=== PATIENT | female | born 1970 | race American Indian/Alaskan Native ===

== ENCOUNTER 2019-03-13 17:36 | Emergency (ER) | payer SELFPAY ==
[2019-03-13 18:44] VITALS: BP 138/82
--- NOTE | 2019-03-13 18:45 | Event Note ---
ED Screening Note Date of service: 03/13/19 Time: 18:43 ED Screening Note: This is a 48 y.o. F. that presents to the ER with right sided facial pain and swelling for 2 days. Denies dental pain. This initial assessment/diagnostic orders/clinical plan/treatment(s) is/are subject to change based on patients health status, clinical progression and re- assessment by fellow clinical providers in the ED. Further treatment and workup at subsequent clinical providers discretion. Patient/guardian urged not to elope from the ED as their condition may be serious if not clinically assessed and managed. Initial orders include:
[2019-03-13] MEDS ORDERED: PERCOCET 5/325 PO ONE (19:28)
[2019-03-13] MEDS ORDERED: TORADOL IV ONE (19:28)
[2019-03-13] MEDS ORDERED: CLEOCIN 900 MG/50 mL 900 MG/50 ML BAG IV ONE (19:28)
[2019-03-13] MEDS ORDERED: DECADRON IV ONE (19:28)
[2019-03-13] MEDS ORDERED: ZOFRAN IV ONE (19:28)
[2019-03-13 20:25] LABS: Alanine Aminotransferase 32 units/L (7-56); Albumin 4.2 g/dL (3.9-5); BUN/Creatinine Ratio 10; Blood Urea Nitrogen 8 mg/dL (7-17); Calcium 9.3 mg/dL (8.4-10.2); Hemolysis Index 9
[2019-03-13 21:25] LABS: Hematocrit 39.4 % (30.3-42.9); Hemoglobin 12.9 gm/dl (10.1-14.3); Mean Corpuscular HGB Conc 33 % (30-34); Mean Corpuscular Volume 85 fl (79-97); Platelet Count 310 K/mm3 (140-440); Red Blood Count 4.65 M/mm3 (3.65-5.03); Red Cell Distribution Width 13.5 % (13.2-15.2)
[2019-03-13 22:10] LABS: Basophils % (Auto) 0.2 % (0.0-1.8); Eosinophils # (Auto) 0.1 K/mm3 (0.0-0.4); Lymphocytes # (Auto) 1.9 K/mm3 (1.2-5.4); Monocytes # (Auto) 0.8 K/mm3 (0.0-0.8); Monocytes % (Auto) 6.4 % (0.0-7.3)
--- NOTE | 2019-03-13 22:43 | Cat Scan Report ---
CT maxillofacial without contrast INDICATION : left side facial swelling facial . TECHNIQUE: Axial imaging performed through the face with reconstructed images also reviewed. All CT scans at this location are performed using CT dose reduction for ALARA by means of automated exposur e control. COMPARISON: None FINDINGS: There is cortical breakthrough and bony erosion involving the right first maxillary molar, with complete opacification of the right maxillary sinus and also a more superficial abscess measuri ng 2.8 x 1.9 cm on image #133 of series #3 overlying the right-sided maxilla. There is surrounding in flammatory stranding in the subcutaneous tissues in shotty likely reactive lymph nodes. Orbits are normal. There is mucosal thickening in several of the right sided ethmoid air cells as wel l as the aforementioned right maxillary sinus which is nearly completely opacified. There is essentia lly no aeration of the frontal sinuses. Remaining sinuses and mastoid air cells are clear. IMPRESSION: 1. Right-sided maxillary periapical abscess as outlined above. 2. Right maxillary sinus and ethmoid air cell paranasal sinus disease. Signer Name: Maury Nunez MD Signed: 03/13/2019 10:38 PM Workstation Name: [id number]
[2019-03-13 23:01] LABS: Basophils % (Manual) 0 % (0.0-1.8); Total Cells Counted 100
[2019-03-13 23:02] LABS: Platelet Estimate Consistent w Auto; RBC Morphology Normal
--- NOTE | 2019-03-13 23:08 | Emergency Department Report ---
ED ENT HPI - General Chief complaint: Dental/Oral Stated complaint: SWOLLEN FACE Time Seen by Provider: 03/13/19 18:43 Source: patient Mode of arrival: Ambulatory Limitations: No Limitations - History of Present Illness Initial comments: Patient is a 48-year-old -[place] female with no past medical history who presents to the ED with complaint of acute onset persistent painful swelling right maxillary gums with premolar and molar toothache for the last 1 week. Patient states that in the last 2 days she has had worsening right zygomatic swelling with severe pain. Patient states that she has been taking ibuprofen for pain as needed. Patient states that the last 2 days the patient has not been well controlled with ibuprofen. Patient denies fever, chills, nausea, vomiting, dizziness, headache, chest pain, shortness of breath, sore throat, change in vision, traumatic injury or discharge and hearing loss MD complaint: tooth pain (right maxillary premolars and molar), other (swollen gums and face) -: Sudden, week(s) (1) Location: tooth # (1- 5), other (right maxillary premolar and molar teeth, swollen face) Severity: severe Severity scale (0 -10): 8 Quality: aching, sharp, constant Consistency: constant Improves with: none Worsens with: none Context- Dental: history of dental caries, poor dental care Associated Symptoms: gum swelling, toothache. denies: fever, cough, pain with swallowing, sore throat, tinnitus, hearing loss, discharge from ear, rhinorrhea, other - Related Data Previous Rx's Medication Instructions Recorded Last Taken Type Acetaminophen/Codeine [Tylenol 1 tab PO Q6H PRN #15 tab 03/13/19 Unknown Rx /Codeine # 3 tab] Clindamycin [Clindamycin CAP] 150 mg PO Q6HR #80 capsule 03/13/19 Unknown Rx Ketorolac [Toradol] 10 mg PO Q6H PRN #20 tablet 03/13/19 Unknown Rx Penicillin V Potassium 500 mg PO Q6H #40 tablet 03/13/19 Unknown Rx Allergies Allergy/AdvReac Type Severity Reaction Status Date / Time No Known Allergies Allergy Verified 03/13/19 18:13 ED Dental HPI - General Chief complaint: Dental/Oral Stated complaint: SWOLLEN FACE Time Seen by Provider: 03/13/19 18:43 Source: patient Mode of arrival: Ambulatory Limitations: No Limitations - History of Present Illness Initial comments: Patient is a 48-year-old -[place] female with no past medical history who presents to the ED with complaint of acute onset persistent painful swelling right maxillary gums with premolar and molar toothache for the last 1 week. Patient states that in the last 2 days she has had worsening right zygomatic swelling with severe pain. Patient states that she has been taking ibuprofen for pain as needed. Patient states that the last 2 days the patient has not been well controlled with ibuprofen. Patient denies fever, chills, nausea, vomiting, dizziness, headache, chest pain, shortness of breath, sore throat, change in vision, traumatic injury or discharge and hearing loss MD complaint: tooth pain (right maxillary premolar and molar toothache, swollen gums) -: Sudden, week(s) (1) 1 - Swollen, painful teeth and gum Severity: severe Quality: aching, sharp, constant Consistency: constant Improves with: none Worsens with: none Context- Dental: history of dental caries, poor dental care Dental Associated Symptons: Yes: Gum Swelling. No: Headache, Earache, Sore Throat - Related Data Previous Rx's Medication Instructions Recorded Last Taken Type Acetaminophen/Codeine [Tylenol 1 tab PO Q6H PRN #15 tab 03/13/19 Unknown Rx /Codeine # 3 tab] Clindamycin [Clindamycin CAP] 150 mg PO Q6HR #80 capsule 03/13/19 Unknown Rx Ketorolac [Toradol] 10 mg PO Q6H PRN #20 tablet 03/13/19 Unknown Rx Penicillin V Potassium 500 mg PO Q6H #40 tablet 03/13/19 Unknown Rx Allergies Allergy/AdvReac Type Severity Reaction Status Date / Time No Known Allergies Allergy Verified 03/13/19 18:13 ED Review of Systems ROS: Stated complaint: SWOLLEN FACE Other details as noted in HPI Constitutional: denies: chills, fever Eyes: denies: eye pain, eye discharge, vision change ENT: dental pain (right maxillary premolar and molar teeth), other (swollen right maxillary gums; swollen right zygomatic area). denies: ear pain, throat pain Respiratory: denies: cough, shortness of breath, wheezing Cardiovascular: denies: chest pain, palpitations Endocrine: no symptoms reported Gastrointestinal: denies: abdominal pain, nausea, diarrhea Genitourinary: denies: urgency, dysuria, discharge Musculoskeletal: denies: back pain, joint swelling, arthralgia Skin: denies: rash, lesions Neurological: denies: headache, weakness, paresthesias Psychiatric: denies: anxiety, depression Hematological/Lymphatic: denies: easy bleeding, easy bruising ED Past Medical Hx - Social History Smoking Status: Never Smoker Substance Use Type: None - Medications Home Medications: Home Medications Medication Instructions Recorded Confirmed Last Taken Type Acetaminophen/Codeine [Tylenol 1 tab PO Q6H PRN #15 tab 03/13/19 Unknown Rx /Codeine # 3 tab] Clindamycin [Clindamycin CAP] 150 mg PO Q6HR #80 capsule 03/13/19 Unknown Rx Ketorolac [Toradol] 10 mg PO Q6H PRN #20 tablet 03/13/19 Unknown Rx Penicillin V Potassium 500 mg PO Q6H #40 tablet 03/13/19 Unknown Rx ED Physical Exam - General Limitations: No Limitations General appearance: alert, in no apparent distress - Head Head exam: Present: atraumatic, normocephalic, normal inspection - Eye Eye exam: Present: normal appearance, PERRL, EOMI. Absent: scleral icterus, conjunctival injection, nystagmus, periorbital swelling Pupils: Present: normal accommodation - ENT ENT exam: Present: mucous membranes moist, TM's normal bilaterally, normal external ear exam, other (Swollen right zygomatic area; swollen right maxillary gums and severely tender premolars and molar teeth) - Neck Neck exam: Present: normal inspection, full ROM, lymphadenopathy. Absent: tenderness, meningismus, thyromegaly - Respiratory Respiratory exam: Present: normal lung sounds bilaterally. Absent: respiratory distress, wheezes, rales, rhonchi, stridor, chest wall tenderness, accessory muscle use, decreased breath sounds - Cardiovascular Cardiovascular Exam: Present: regular rate, normal rhythm. Absent: systolic murmur, diastolic murmur, rubs, gallop - GI/Abdominal GI/Abdominal exam: Present: soft, normal bowel sounds. Absent: tenderness, guarding, hypoactive bowel sounds - Rectal Rectal exam: Present: deferred - Extremities Exam Extremities exam: Present: normal inspection, full ROM, normal capillary refill - Back Exam Back exam: Present: normal inspection, full ROM. Absent: tenderness, CVA tenderness (R), CVA tenderness (L), muscle spasm, paraspinal tenderness - Neurological Exam Neurological exam: Present: alert, oriented X3, CN II-XII intact, normal gait, reflexes normal - Psychiatric Psychiatric exam: Present: normal affect, normal mood - Skin Skin exam: Present: warm, dry, intact, normal color. Absent: rash ED Course Vital Signs 03/13/19 18:43 Temperature 98.8 F Pulse Rate 82 Respiratory 16 Rate Blood Pressure 138/82 O2 Sat by Pulse 98 Oximetry - Reevaluation(s) Reevaluation #1: 03/13/19 23:12 This is a 48-year-old [place] female with no past medical history presented to the ED with complaint of painful swollen right leg, to area, swollen right maxillary gums and painful right maxillary premolars and molar teeth for the last 1 week. In the ED, patient is alert and oriented 3 and is not in distress but appears to be in pain. The vital signs are stable in triage. Lab test results show acute leukocytosis of 12,100. The rest of the lab test results are unremarkable. Facial CT scan with contrast shows a cortical breakthrough and bony erosion involving the right first maxillary molar, with complete opacification of the right maxillary sinus and also a more superficial abscess measuring 2.8 x 1.9 cm on image #133 of series #3 overlying the right-sided m axilla. There is surrounding inflammatory stranding in the subcutaneous tissues in shotty likely reactive lymph nodes. Orbits are normal. There is mucosal thickening in several of the right sided ethmoid air cells as well as the aforementioned right maxillary sinus which is nearly completely opacified. There is essentially no aeration of the frontal sinuses. Remaining sinuses and mastoid air cells are clear. Therefore, the patient appears to have a right-sided maxillary periapical abscess as outlined above, and a right maxillary sinus and ethmoid air cell paranasal sinus disease. These findings were discussed with the ED attending physicians Drs. Álvarez and Jimmie who advised that the patient be discharged home on oral antibiotics and pain medications, and be advised to promptly follow up with her Maxillofacial surgeon, Dr. Childs for reevaluation. The patient was then discharged home on antibiotics and pain medications and advised to follow-up with maxillofacial surgeon Dr. Childs in the next 24-48 hours for further evaluation. Patient verbalized understanding of instructions and promised to contact Dr. Childs in the morning to schedule an appointment. Patient was also advised to return to the ED immediately if symptoms get worse. ED Medical Decision Making - Lab Data Result diagrams: 03/13/19 21:11 03/13/19 19:53 - Radiology Data Radiology results: report reviewed, image reviewed Findings [address] [address] Cat Scan Report Signed Patient: KEVIN PARSON MR#: [id number] : 1970 Acct:[id number] Age/Sex: 48 / F ADM Date: 03/13/19 Loc: ED Attending Dr: Ordering Physician: GERMAN GALLO Date of Service: 03/13/19 Procedure(s): CT facial bones w con Accession Number(s): [id number] cc: GERMAN GALLO CT maxillofacial without contrast INDICATION : left side facial swelling facial . TECHNIQUE: Axial imaging performed through the face with reconstructed images also reviewed. All CT scans at this location are performed using CT dose reduction for ALARA by shelley ns of automated e xposure control. COMPARISON: None FINDINGS: There is cortical breakthrough and bony erosion involving the right first maxillary molar, with complete opacification of the right maxillary sinus and also a more superficial abscess measuring 2.8 x 1.9 cm on image #133 of series #3 overlying the right-sided maxilla. There is surrounding inflammatory stranding in the subcutaneous tissues in shotty likely reactive lymph nodes. Orbits are normal. There is mucosal thickening in several of the right sided ethmoid air cells as well as the aforementioned right maxillary sinus which is nearly completely opacified. There is essentially no aeration of the frontal sinuses. Remaining sinuses and mastoid air cells are clear. IMPRESSION: 1. Right-sided maxillary periapical abscess as outlined above. 2. Right maxillary sinus and ethmoid air cell paranasal sinus disease. Signer Name: Maury Nunez MD Signed: 03/13/2019 10:38 PM Workstation Name: [id number] Transcribed By: RISHI Dictated By: Maury Nnuez MD Electronically Authenticated By: Maury Nunez MD Signed Date/Time: 03/13/19 2238 - Medical Decision Making This is a 48-year-old [place] female with no past medical history presented to the ED with complaint of painful swollen right leg, to area, swollen right maxillary gums and painful right maxillary premolars and molar teeth for the last 1 week. In the ED, patient is alert and oriented 3 and is not in distress but appears to be in pain. The vital signs are stable in triage. Lab test results show acute leukocytosis of 12,100. The rest of the lab test results are unremarkable. Facial CT scan with contrast shows a cortical breakthrough and bony erosion involving the right first maxillary molar, with complete opacification of the right maxillary sinus and also a more superficial abscess measuring 2.8 x 1.9 cm on image #133 of series #3 overlying the right-sided maxilla. There is surrounding inflammatory stranding in the subcutaneous tissues in shotty likely reactive lymph nodes. Orbits are normal. There is mucosal thickening in several of the right sided ethmoid air cells as well as the afor ementioned right maxillary sinus which is nearly completely opacified. There is essentially no aeration of the frontal sinuses. Remaining sinuses and mastoid air cells are clear. Therefore, the patient appears to have a right-sided maxillary periapical abscess as outlined above, and a right maxillary sinus and ethmoid air cell paranasal sinus disease. These findings were discussed with the ED attending physicians Drs. Álvarez and Jimmie who advised that the patient be discharged home on oral antibiotics and pain medications, and be advised to promptly follow up with her Maxillofacial surgeon, Dr. Childs for reevaluation. The patient was then discharged home on antibiotics and pain medications and advised to follow-up with maxillofacial surgeon Dr. Childs in the next 24-48 hours for further evaluation. Patient verbalized understanding of instructions and promised to contact Dr. Childs in the morning to schedule an appointment. Patient was also advised to return to the ED immediately if symptoms get worse. - Differential Diagnosis dental abscess; chronic sinusitis; chronic gingivitis Critical care attestation.: If time is entered above; I have spent that time in minutes in the direct care of this critically ill patient, excluding procedure time. ED Disposition Clinical Impression: Chronic gingivitis, Chronic maxillary sinusitis, Dental abscess Disposition: TO HOME OR SELFCARE Is pt being admited?: No Does the pt Need Aspirin: No Condition: Stable Instructions: Gingivitis (ED), Sinusitis (ED), Dental Abscess (ED) Additional Instructions: Take medications with food, drink plenty of fluids and follow up with your dentist oral maxillofacial surgeon Dr. Childs for follow-up and further evaluation in the next 24-48 hours. Return to the ED immediately if symptoms get worse. Prescriptions: Clindamycin [Clindamycin CAP] 150 mg PO Q6HR #80 capsule Penicillin V Potassium 500 mg PO Q6H #40 tablet Ketorolac [Toradol] 10 mg PO Q6H PRN #20 tablet PRN Reason: Pain Acetaminophen/Codeine [Tylenol /Codeine # 3 tab] 1 tab PO Q6H PRN #15 tab PRN Reason: Pain , Severe (7-10) Referrals: [facility] [Outside] - 3-5 Days Time of Disposition: 23:22 Print Language: TOGOLESE
== END 2019-03-13 23:37 | disposition home or self-care (01) ==
LOC: ED 17:36
DX: K04.7 Periapical abscess without sinus (principal); K05.10 Chronic gingivitis, plaque induced; J32.0 Chronic maxillary sinusitis; Z79.899 Other long term (current) drug therapy
CPT/HCPCS: 36415; 70487; 80053; 85007; 85025; 96365; 96375; 99284; J1100; J1885; J2405; Q9967